=== PATIENT | female | born 1965 | race Caucasian/White ===

== ENCOUNTER 2022-12-02 09:01 | Outpatient (OUT) | payer BC, SELFPAY ==
--- NOTE | 2022-12-02 | XR_ITS ---
The [address] [address] Patient Name: STEVE PAEZ MRN: [id number] date: 1965 Sex: F Assigned Patient Location: [facility] Current Patient Location: [facility] Accession/Order Number: [id number] Exam Date: 12/02/2022 09:10 Report Date: 12/02/2022 09:58 At the request of: AMARJIT VALENCIA Procedure: XR foot LT min 3V XR foot LT min 3V, 12/02/2022 9:10 AM EDT, [place]001 INDICATION: LEFT FOOT PAIN COMPARISON: Radiographs from 12/03/2021. TECHNIQUE: 4 images are submitted. FINDINGS: Extensive postsurgical changes are again seen, including internal plate and screw fixation across the first, second and third tarsometatarsal joints, and the cuboid prosthesis. The components appear intact and unchanged in position. The bones appear well mineralized. No acute fracture or subluxation is identified. Degenerative changes again seen at the talonavicular joint. No destructive osseous process is identified. The visualized soft tissues appear unremarkable. XR/XR foot LT min 3V IMPRESSION: Stable post surgical and degenerative changes compared to 12/03/2021. No acute fracture or component failure is seen. Electronically authenticated by: ISAEL URBINA Date: 12/02/2022 09:58
== END 2022-12-02 09:02 | disposition home or self-care (01) ==
LOC: RAD 09:04
PROVIDERS: Visit Provider Podiatrist Foot & Ankle Surgery
DX: M79.672 Pain in left foot (principal)
CPT/HCPCS: 73630

== ENCOUNTER 2023-12-08 08:58 | Outpatient (OUT) | payer BC, SELFPAY ==
--- NOTE | 2023-12-08 | XR_ITS ---
The [address] [address] Patient Name: STEVE PAEZ MRN: [id number] date: 1965 Sex: F Assigned Patient Location: Current Patient Location: Accession/Order Number: [id number] Exam Date: 12/08/2023 08:58 Report Date: 12/09/2023 13:12 At the request of: AMARJIT VALENCIA Procedure: XR foot LT min 3V PROCEDURE: XR foot LT min 3V COMPARISON: 12/02/2022 HISTORY: LEFT FOOT PAIN FINDINGS: BONES:Stable cuboid arthroplasty. Stable fusion of the midfoot and forefoot with a plate and multiple screws. No mechanical failure. Lucency in the distal tibia from bone graft harvesting. Moderate degenerative changes with joint space narrowing and marginal osteophyte formation SOFT TISSUES:Negative. No visible soft tissue swelling. EFFUSION:None visible. OTHER: Negative. XR/XR foot LT min 3V IMPRESSION: Stable postsurgical and degenerative changes Electronically authenticated by: HEATHER BROWN Date: 12/09/2023 13:12
== END 2023-12-08 08:59 | disposition home or self-care (01) ==
LOC: EC 08:58
PROVIDERS: Visit Provider Podiatrist Foot & Ankle Surgery
DX: M79.672 Pain in left foot (principal); M24.675 Ankylosis, left foot
CPT/HCPCS: 73630

== ENCOUNTER 2024-08-03 07:38 | Outpatient (OUT) | payer OTHER, SELFPAY ==
--- NOTE | 2024-08-03 07:51 | XR_ITS ---
The [address] [address] Patient Name: STEVE PAEZ MRN: [id number] date: 1965 Sex: F Assigned Patient Location: [facility] Current Patient Location: [facility] Accession/Order Number: [id number] Exam Date: 08/03/2024 09:27 Report Date: 08/03/2024 09:28 At the request of: AMARJIT VALENCIA DPShruti Procedure: XR foot LT min 3V LEFT FOOT - 3 views CLINICAL HISTORY: Avascular Necrosis Foot COMPARISON: Left foot 12/08/2023. FINDINGS: Hardware is seen involving the midfoot and forefoot without hardware complication or significant change in alignment. Bones are grossly demineralized. No acute fracture is seen. Degenerative changes are seen involving the midfoot particularly involving the talonavicular joint. No bony erosions. XR/XR foot LT min 3V IMPRESSION: NO HARDWARE COMPLICATION OR DEFINITIVE ACUTE BONY PROCESS. Impression dictated by: Armando Almanza Jr., D.O. 08/03/2024 9:28 AM Dictation Location: [facility] Electronically authenticated by: [id number] Y Date: 08/03/2024 09:28
== END 2024-08-03 07:39 | disposition home or self-care (01) ==
PROVIDERS: Visit Provider Podiatrist Foot & Ankle Surgery
DX: M87.17 Osteonecrosis due to drugs, ankle, foot and toes (principal)
CPT/HCPCS: 73630